=== PATIENT | female | born 1995 | race African-American/Black ===

== ENCOUNTER 2017-04-06 16:53 | Emergency (ER) | payer MEDICAID ==
[2017-04-06] MEDS ORDERED: IBUPROFEN 600 MG TABLET PO ONE (17:29)
--- NOTE | 2017-04-06 17:56 | ER Document Report ---
ED Cardiac - General Chief Complaint: Chest Pain Stated Complaint: SHORTNESS OF BREATH Time Seen by Provider: 04/06/17 17:26 Notes: The patient is a 21-year-old female, past medical history childhood asthma, presents with right-sided chest pain is described as an achiness with mild shortness of breath. It started after she was cleaning today and the pain is worse when she moves her arms. She denies OCP use, hemoptysis, fevers, leg swelling, recent surgery, rash, headaches, nausea, vomiting or abdominal pain. TRAVEL OUTSIDE OF THE [place] IN LAST 30 DAYS: No - Related Data Allergies/Adverse Reactions: Penicillins Allergy (Verified 04/06/17 17:15) Past Medical History - General Information source: Patient - Social History Smoking Status: Current Some Day Smoker Chew tobacco use (# tins/day): No Frequency of alcohol use: None Drug Abuse: None Family History: Malignancy Pulmonary Medical History: Reports: Hx Asthma - childhood Renal/ Medical History: Denies: Hx Peritoneal Dialysis - Immunizations Hx Diphtheria, Pertussis, Tetanus Vaccination: Yes Review of Systems - Review of Systems Notes: REVIEW OF SYSTEMS: CONSTITUTIONAL: -fevers, -chills EENT: -eye pain, -difficulty swallowing, -nasal congestion CARDIOVASCULAR: +chest pain, -syncope. RESPIRATORY: -cough, +SOB GASTROINTESTINAL: -abdominal pain, - nausea, -vomiting, -diarrhea GENITOURINARY: -dysuria, -hematuria MUSCULOSKELETAL: -back pain, -neck pain SKIN: -rash or skin lesions. HEMATOLOGIC: -easy bruising or bleeding. LYMPHATIC: -swollen, enlarged glands. NEUROLOGICAL: -altered mental status or loss of consciousness, -headache, - neurologic symptoms PSYCHIATRIC: -anxiety, -depression. ALL OTHER SYSTEMS REVIEWED AND NEGATIVE. Physical Exam - Vital signs Vitals: Temp Pulse Resp BP Pulse Ox 98.6 F 64 12 126/74 H 100 04/06/17 16:56 04/06/17 16:56 04/06/17 16:56 04/06/17 16:56 04/06/17 16:56 - Notes Notes: PHYSICAL EXAMINATION: GENERAL: Well-appearing, well-nourished and in no acute distress. HEAD: Atraumatic, normocephalic. EYES: Pupils equal round and reactive to light, extraocular movements intact, sclera anicteric, conjunctiva are normal. ENT: nares patent, oropharynx clear without exudates. Moist mucous membranes. NECK: Normal range of motion, supple without lymphadenopathy LUNGS: Breath sounds clear to auscultation bilaterally and equal. No wheezes rales or rhonchi. HEART: Regular rate and rhythm without murmurs. Right upper chest wall tenderness. ABDOMEN: Soft, nontender, normoactive bowel sounds. No guarding, no rebound. No masses appreciated. EXTREMITIES: Normal range of motion, no pitting or edema. No cyanosis. NEUROLOGICAL: Cranial nerves grossly intact. Normal speech, normal gait. Normal sensory and motor exams. PSYCH: Normal mood, normal affect. SKIN: Warm, Dry, normal turgor, no rashes or lesions noted. Course - Re-evaluation Re-evalutation: Patient has reproducible right upper chest wall pain. EKG does not show any ischemic changes and chest x-ray is unremarkable. She is PERC negative and her HEART score is 0. Will discharge patient home with NSAIDs and f/u with her PMD for further evaluation. - Vital Signs Vital signs: Temp Pulse Resp BP Pulse Ox 98.6 F 64 12 126/74 H 100 04/06/17 16:56 04/06/17 16:56 04/06/17 16:56 04/06/17 16:56 04/06/17 16:56 - Diagnostic Test Radiology reviewed: Image reviewed, Reports reviewed Radiology results interpreted by me: CXR: NAD - EKG Interpretation by Me EKG shows normal: Sinus rhythm, [place], Intervals, QRS Complexes Additional EKG results interpreted by me: No STEMI Discharge - Discharge Clinical Impression: Chest pain Qualifiers: Chest pain type: unspecified Qualified Code(s): R07.9 - Chest pain, unspecified Condition: Stable Disposition: HOME, SELF-CARE Additional Instructions: CHEST PAIN OF UNCLEAR CAUSE: The exact cause of your chest pain isn't clear. Fortunately, there is no evidence of a dangerous medical condition. Further testing may be required to find the source of the pain. Most often, we find that this pain is coming from the chest wall -- the muscles or rib joints in the chest. But chest pain can come from the lung and lung lining, the esophagus, the heart valves or heart lining, and even the stomach or gallbladder. Rest. Eat lightly until the pain is gone. We may prescribe medicine for pain and inflammation. You should call the physician immediately if the pain radiates to the shoulder, jaw or arms; if you start to run a fever or develop a cough; or if you develop shortness of breath, or other new or alarming symptoms. NORMAL EXAM AND WORKUP: At this time, your examination and workup show no significant abnormality. No significant abnormal physical findings were noted. All laboratory, EKG, and imaging (x-ray, CT scans, ultrasound) studies that were ordered show no significant abnormality. Although your examination and all studies that were ordered showed no significant abnormal finding, there are no examinations and no studies that are 100% accurate. There is always the possibility that some abnormality could exist and not be detected with physical examination or within the limits and capabilities of laboratory and other studies. You should return or follow up as you were instructed on your visit today for further evaluation if your symptoms do not resolve. CHEST WALL PAIN: Your chest pain may be coming from the chest wall. This is often caused by straining the muscles or joints in the chest during physical activity, direct trauma, coughing, or vigorous vomiting. Persons with arthritis are especially prone to this type of pain, due to inflammation of the cartilage joints near the breast bone. Occasionally, no cause can be found. Rest from strenuous physical activity. This kind of chest pain is usually made worse by movement of the chest. Depending on the symptoms, we may prescribe medicine for pain, muscle relaxation, and antiinflammatory effects. If the pain is new, and seems to be due to muscle strain, cold packs can help. Otherwise, apply gentle warmth to the painful area for 15 minutes every hour or two. You should call contact the doctor immediately if things change. Further evaluation is needed if you develop a fever or cough, if the nature of the pain changes, or if you become short of breath. FOLLOW-UP CARE: If you have been referred to a physician for follow-up care, call the physician s office for an appointment as you were instructed or within the next two days. If you experience worsening or a significant change in your symptoms, notify the physician immediately or return to the Emergency Department at any time for re-evaluation.
--- NOTE | 2017-04-06 18:11 | RADIOLOGY REPORT (SQ) ---
EXAM DESCRIPTION: CHEST PA/LAT COMPLETED DATE/TIME: 04/06/2017 5:50 pm REASON FOR STUDY: near syncope COMPARISON: None. EXAM PARAMETERS: NUMBER OF VIEWS: two views TECHNIQUE: Digital Frontal and Lateral radiographic views of the chest acquired. RADIATION DOSE: NA LIMITATIONS: none FINDINGS: LUNGS AND PLEURA: No opacities, masses or pneumothorax. No pleural effusion. MEDIASTINUM AND HILAR STRUCTURES: No masses or contour abnormalities. HEART AND VASCULAR STRUCTURES: Heart normal size. No evidence for failure. BONES: No acute findings. HARDWARE: None in the chest. OTHER: No other significant finding. IMPRESSION: NO SIGNIFICANT RADIOGRAPHIC FINDING IN THE CHEST. TECHNICAL DOCUMENTATION: JOB ID: [id number] [employer]- All Rights Reserved
--- NOTE | 2017-04-06 18:26 | EKG REPORT ---
SEVERITY:- BORDERLINE ECG - SINUS RHYTHM BORDERLINE T ABNORMALITIES, ANTERIOR LEADS : Confirmed by: Juan Cook MD 06-Apr-2017 18:26:09
[2017-04-06 18:52] VITALS: BP 127/82
== END 2017-04-06 18:26 | disposition home or self-care (01) ==
LOC: ER 16:53
DX: R07.89 Other chest pain (principal); R06.02 Shortness of breath; F17.200 Nicotine dependence, unspecified, uncomplicated; Z87.09 Personal history of other diseases of the respiratory system; Z88.0 Allergy status to penicillin
CPT/HCPCS: 93005; 99285; 81025; 71020; 93010; J3490

== ENCOUNTER 2017-04-08 11:53 | Emergency (ER) | payer MEDICAID ==
[2017-04-08] MEDS ORDERED: MAG HYDROX/AL HYDROX/SIMETH SUSP 30 ML UDCUP PO ONE (12:16)
[2017-04-08] MEDS ORDERED: METOCLOPRAMIDE HCL ORAL SOLN 10 MG/10 ML UDCUP PO ONE (12:16)
[2017-04-08] MEDS ORDERED: LIDOCAINE 2% VISCOUS SOLN 20 ML UDCUP PO ONE (12:16)
[2017-04-08 12:44] LABS: ABSOLUTE BASOPHILS # (AUTO) 0.1 10^3/uL (0.0-0.2); ABSOLUTE EOSINOPHILS # (AUTO) 0.1 10^3/uL (0.0-0.6); ABSOLUTE LYMPHOCYTES (AUTO) 2.8 10^3/uL (0.5-4.7); ABSOLUTE MONOCYTES (AUTO) 0.5 10^3/uL (0.1-1.4); ABSOLUTE NEUT (AUTO) 5.8 10^3/uL (1.7-8.2); BASOPHILS % (AUTO) 0.6 % (0-2); EOSINOPHILS % (AUTO) 1.2 % (0-6); HEMOGLOBIN 12.8 g/dL (12.0-15.5); HGB HCT DIFFERENCE -0.6; LYMPHOCYTES % (AUTO) 30.6 % (13-45); MEAN CORPUSCULAR HEMOGLOBIN 28.8 pg (27.0-33.4); MEAN CORPUSCULAR HGB CONC 32.9 g/dL (32.0-36.0); MEAN CORPUSCULAR VOLUME 88 fl (80-97); MONOCYTES % (AUTO) 5.2 % (3-13); RED BLOOD COUNT 4.44 10^6/uL (3.72-5.28); RED CELL DISTRIBUTION WIDTH 13.4 % (11.5-14.0); SEGMENTED NEUTROPHILS % (AUTO) 62.4 % (42-78); WHITE BLOOD COUNT 9.2 10^3/uL (4.0-10.5)
[2017-04-08 12:46] LABS: APPEARANCE,URINE CLEAR; BILIRUBIN,URINE NEGATIVE (NEGATIVE); GLUCOSE, URINE NEGATIVE (NEGATIVE); KETONES,URINE NEGATIVE (NEGATIVE); LEUKOCYTE ESTERASE,URINE NEGATIVE (NEGATIVE); NITRITE,URINE NEGATIVE (NEGATIVE); PROTEIN,URINE NEGATIVE (NEGATIVE); URINE SPECIFIC GRAVITY 1.005; UROBILINOGEN,URINE NEGATIVE mg/dL (<2.0)
[2017-04-08 13:06] LABS: ALANINE AMINOTRANSFERASE 20 U/L (9-52); ALBUMIN 3.9 g/dL (3.5-5.0); ALKALINE PHOSPHATASE 67 U/L (38-126); ANION GAP 10 (5-19); ASPARTATE AMINO TRANSFERASE 14 U/L (14-36); BILIRUBIN,DIRECT 0.3 mg/dL (0.0-0.4); BILIRUBIN,TOTAL 0.4 mg/dL (0.2-1.3); BLOOD UREA NITROGEN 9 mg/dL (7-20); CALCIUM 9.5 mg/dL (8.4-10.2); CARBON DIOXIDE 25 mmol/L (22-30); CHLORIDE 107 mmol/L (98-107); CREATININE RESULT 0.63 mg/dL (0.52-1.25); GLUCOSE 87 mg/dL (75-110); POTASSIUM 4.3 mmol/L (3.6-5.0); SODIUM 142.1 mmol/L (137-145); TOTAL PROTEIN 6.6 g/dL (6.3-8.2)
--- NOTE | 2017-04-08 14:15 | ER Document Report ---
ED Cardiac - General Chief Complaint: Chest Pain Stated Complaint: CHEST PAIN Time Seen by Provider: 04/08/17 12:15 Mode of Arrival: Ambulatory Information source: Patient Notes: Patient comes in with right-sided chest pain. She states it is sharp and moderate. It does radiate to her back. She has not noticed any that makes it better or worse. She was seen here 2 days ago with a negative workup. She has no chronic medical conditions or surgeries. Patient denies any vomiting or diarrhea but does have some nausea. Patient denies any previous history of DVTs. She does not smoke or use control pills. She states she has been under a lot of stress lately and feeling very anxious. TRAVEL OUTSIDE OF THE [place] IN LAST 30 DAYS: No - Related Data Allergies/Adverse Reactions: Penicillins Allergy (Verified 04/08/17 12:43) Past Medical History - General Information source: Patient - Social History Smoking Status: Never Smoker Frequency of alcohol use: None Drug Abuse: None Family History: Reviewed & Not Pertinent, Malignancy Patient has suicidal ideation: No Patient has homicidal ideation: No Pulmonary Medical History: Reports: Hx Asthma - childhood Renal/ Medical History: Denies: Hx Peritoneal Dialysis Surgical Hx: Negative - Immunizations Hx Diphtheria, Pertussis, Tetanus Vaccination: Yes Review of Systems - Review of Systems Constitutional: denies: Chills, Fever Cardiovascular: Chest pain. denies: Palpitations Respiratory: Short of breath. denies: Cough Genitourinary: denies: Dysuria, Frequency -: Yes All other systems reviewed and negative Physical Exam - Vital signs Vitals: Temp Pulse Resp BP Pulse Ox 98.7 F 56 L 16 116/79 100 04/08/17 12:09 04/08/17 12:09 04/08/17 12:09 04/08/17 12:09 04/08/17 12:09 Interpretation: Normal - General General appearance: Appears well, Alert - HEENT Head: Normocephalic, Atraumatic Eyes: Normal Pupils: PERRL - Respiratory Respiratory status: No respiratory distress Chest status: Nontender Breath sounds: Normal Chest palpation: Normal - Cardiovascular Rhythm: Regular Heart sounds: Normal auscultation Murmur: No - Abdominal Inspection: Normal Distension: No distension Bowel sounds: Normal Tenderness: Nontender Organomegaly: No organomegaly - Back Back: Normal, Nontender - Extremities General upper extremity: Normal inspection, Nontender, Normal color, Normal ROM , Normal temperature General lower extremity: Normal inspection, Nontender, Normal color, Normal ROM , Normal temperature, Normal weight bearing. No: Dulce's sign - Neurological Neuro grossly intact: Yes Cognition: Normal Orientation: AAOx4 [place]anna Coma Scale Eye Opening: Spontaneous [place] Coma Scale Verbal: Oriented [place] Coma Scale Motor: Obeys Commands [place] Coma Scale Total: 15 Speech: Normal Motor strength normal: LUE, RUE, LLE, RLE Sensory: Normal - Psychological Associated symptoms: Normal affect, Normal mood - Skin Skin Temperature: Warm Skin Moisture: Dry Skin Color: Normal Course - Vital Signs Vital signs: Temp Pulse Resp BP Pulse Ox 98.7 F 56 L 16 116/79 100 04/08/17 12:04/08/17 12:04/08/17 12:09 04/08/17 12:09 04/08/17 12:09 - Laboratory Result Diagrams: 04/08/17 12:34 04/08/17 12:34 - EKG Interpretation by Ct EKG shows normal: Sinus rhythm Rate: Normal Rhythm: NSR Hawks/QRS: No: Right axis deviation, Left axis deviation When compared to previous EKG there are: No significant change Discharge - Discharge Clinical Impression: Acute anxiety Condition: Stable Disposition: HOME, SELF-CARE Instructions: Anxiety ([facility]) Additional Instructions: Please follow-up as an outpatient for problems with stress and anxiety as instructed. He has been described a medicine called Xanax, it is a benzodiazepine, it will help with anxiety. Prescriptions: Alprazolam [Xanax 0.25 mg Tablet] 0.25 mg PO TID PRN #10 tab PRN Reason: Forms: Elevated Blood Pressure
[2017-04-08 14:21] VITALS: BP 116/87
--- NOTE | 2017-04-08 19:52 | EKG REPORT ---
SEVERITY:- BORDERLINE ECG - SINUS ARRHYTHMIA, RATE 48-[address]-T CHANGES- INFERIOR LEADS : Confirmed by: Juan Cook MD 08-Apr-2017 19:52:11
== END 2017-04-08 14:18 | disposition home or self-care (01) ==
LOC: ER 11:53
DX: F41.9 Anxiety disorder, unspecified (principal); R07.9 Chest pain, unspecified; M54.9 Dorsalgia, unspecified
CPT/HCPCS: 93005; 99285; 36415; 85025; 81025; 80053; 81001; 84484; 93010; J3490 ×3

== ENCOUNTER 2017-10-20 22:11 | Emergency (ER) | payer MEDICAID, OTHER ==
[2017-10-20] MEDS ORDERED: KETOROLAC TROMETHAMINE INJ/PF 30 MG/1 ML SDV IM ONE (23:15)
--- NOTE | 2017-10-20 23:18 | ER Document Report ---
ED Cardiac - General Chief Complaint: Chest Pain Stated Complaint: CHEST PAIN Time Seen by Provider: 10/20/17 22:57 Mode of Arrival: Ambulatory Information source: Patient TRAVEL OUTSIDE OF THE [place] IN LAST 30 DAYS: No - HPI Patient complains to provider of: Chest pain Notes: Patient is here with complaints of chest pain. She states the pain is in the right side of her chest. It started this morning. It has been constant and progressively getting worse. Pain is worse with movement of her right arm, taking a deep breath, as well as palpating the right chest. She denies any trauma or injury. She denies any fever or cough. She denies any history of high blood pressure, high cholesterol, diabetes, CAD. She denies IV drug use. She is a smoker. She denies any recent long trips or surgeries, leg pain or leg swelling, cancer, control pills, history of DVT or PE. She has no chronic medical conditions. She took a baby aspirin and Tylenol without relief. She denies any other complaints at this time. - Related Data Allergies/Adverse Reactions: Penicillins Allergy (Verified 04/08/17 12:43) Past Medical History - Social History Smoking Status: Current Every Day Smoker Chew tobacco use (# tins/day): No Frequency of alcohol use: Occasional Drug Abuse: None Family History: Reviewed & Not Pertinent, Malignancy Patient has suicidal ideation: No Patient has homicidal ideation: No Pulmonary Medical History: Reports: Hx Asthma - childhood Renal/ Medical History: Denies: Hx Peritoneal Dialysis - Immunizations Hx Diphtheria, Pertussis, Tetanus Vaccination: Yes Review of Systems - Review of Systems -: Yes All other systems reviewed and negative Physical Exam - Notes Notes: GENERAL: alert, cooperative, nontoxic, no distress. HEAD: normocephalic, atraumatic EYES: conjunctiva pink without discharge, no external redness or swelling. EARS: no external swelling, no external redness NOSE: atraumatic, no external swelling MOUTH/THROAT: mucous membranes moist and pink, posterior pharynx without erythema, swelling, exudate. No trismus or drooling. NECK: soft, supple, full range of motion, no meningismus. CHEST: no distress, lungs clear and equal throughout. No wheezing, rales, rhonchi. Tenderness to palpation of the right upper anterior chest. CARDIAC: regular rate and rhythm, no murmur, normal capillary refill, normal pulses. No peripheral edema noted. ABDOMEN: Soft, nontender. BACK: full range of motion, no CVA tenderness. EXTREMITIES: full range of motion of all extremities. No redness, no swelling. NEURO: alert and oriented x 3, no focal deficits, full range of motion of all extremities. PYSCH: appropriate mood, affect. Patient is cooperative. SKIN: pink, warm, dry, no rash. Course - Re-evaluation Re-evalutation: 10/20/17 23:53 The patient is nontoxic appearing with stable vitals. The patient has right- sided chest pain is been present since this morning. It is worse with movement , deep breath, palpation of this area. She denies trauma. Her EKG is unremarkable. Chest x-ray shows no acute abnormality. She has had similar pain to this in the past and had a full workup last year for the same pain. She has no ACS risk factors. This is very atypical for ACS. She has no PE risk factors and is PERC rule negative for PE, therefore no further provocative testing is needed. Patient's pain is completely reproducible most likely chest wall in nature. She was given a shot of Toradol in the emergency department. She will be discharged home with a prescription for Voltaren. Follow-up if not better in the next 3-5 days, sooner for worsening symptoms, difficulty breathing , high fever, or for any further concerns. The patient's emergency department workup and current diagnosis were explained to the patient and or family. Follow-up instructions were provided. Medications if prescribed were discussed. Instructions for when to return to the emergency department including specific worrisome symptoms were discussed with the patient and/or family. - Diagnostic Test Radiology reviewed: Image reviewed, Reports reviewed - Negative chest x-ray per the radiologist - EKG Interpretation by Id EKG shows normal: Sinus rhythm, [place], Intervals, QRS Complexes, ST-T Waves Rate: Normal Additional EKG results interpreted by me: 10/20/17 23:17 Inverted T-wave in lead III Discharge - Discharge Clinical Impression: Right-sided chest wall pain Condition: Stable Disposition: HOME, SELF-CARE Instructions: Anti-Inflammatory Medication ([facility]), Chest Wall Pain ([facility]) Additional Instructions: Take medication as prescribed. Follow-up with your doctor if not better in 3-5 days, sooner for worsening pain, high fever, difficulty breathing, passing out, or for any further concerns. Prescriptions: Diclofenac Sodium [Voltaren 50 Mg Tablet.] 50 mg PO BID #20 tablet.dr Forms: Smoking Cessation Education Referrals: [facility] [Provider Group] - Follow up as needed
--- NOTE | 2017-10-20 23:25 | RADIOLOGY REPORT (SQ) ---
EXAM DESCRIPTION: CHEST PA/LAT COMPLETED DATE/TIME: 10/20/2017 10:55 pm REASON FOR STUDY: cp COMPARISON: 04/06/2017 EXAM PARAMETERS: NUMBER OF VIEWS: two views TECHNIQUE: Digital Frontal and Lateral radiographic views of the chest acquired. RADIATION DOSE: NA LIMITATIONS: none FINDINGS: LUNGS AND PLEURA: No opacities, masses or pneumothorax. No pleural effusion. MEDIASTINUM AND HILAR STRUCTURES: No masses or contour abnormalities. HEART AND VASCULAR STRUCTURES: Heart normal size. No evidence for failure. BONES: No acute findings. HARDWARE: None in the chest. OTHER: No other significant finding. IMPRESSION: NO SIGNIFICANT RADIOGRAPHIC FINDING IN THE CHEST. TECHNICAL DOCUMENTATION: JOB ID: [id number] 2010 [employer]- All Rights Reserved Reading location - IP/workstation name: [email or web address]
--- NOTE | 2017-10-21 23:03 | EKG REPORT ---
SEVERITY:- OTHERWISE NORMAL ECG - SINUS ARRHYTHMIA, RATE [id number] : Confirmed by: Dio Still 21-Oct-2017 23:03:02
== END 2017-10-21 | disposition home or self-care (01) ==
LOC: ER 22:11
DX: R07.89 Other chest pain (principal); F17.200 Nicotine dependence, unspecified, uncomplicated; Z88.0 Allergy status to penicillin
CPT/HCPCS: 93005; 99285; 96372; 71046; 93010; J1885

== ENCOUNTER 2018-05-09 14:11 | Emergency (ER) | payer SELFPAY ==
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
[2018-05-09 15:49] LABS: APPEARANCE,URINE CLEAR; BILIRUBIN,URINE NEGATIVE (NEGATIVE); COLOR,URINE YELLOW; GLUCOSE, URINE NEGATIVE (NEGATIVE); KETONES,URINE NEGATIVE (NEGATIVE); LEUKOCYTE ESTERASE,URINE NEGATIVE (NEGATIVE); NITRITE,URINE NEGATIVE (NEGATIVE); PROTEIN,URINE 30 mg/dL (NEGATIVE); URINE SPECIFIC GRAVITY 1.027
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
[2018-05-09] MEDS ORDERED: ACETAMINOPHEN 325 MG TABLET PO ONE (16:06)
[2018-05-09 16:29] VITALS: BP 92/58
== END 2018-05-09 16:32 | disposition home or self-care (01) ==
LOC: ER 14:11
DX: G89.29 Other chronic pain (principal); S09.90XA Unspecified injury of head, initial encounter; R07.81 Pleurodynia; M54.2 Cervicalgia; Y04.2XXA Assault by strike against or bumped into by another person, initial encounter; Y92.009 Unspecified place in unspecified non-institutional (private) residence as the place of occurrence of the external cause; Z88.0 Allergy status to penicillin
CPT/HCPCS: 36415; 70450; 70486; 71111; 72125; 81001; 81025; 99285

== ENCOUNTER → 2018-07-20 | Outpatient (CLI) | payer SELFPAY ==
--- NOTE | 2018-07-20 15:23 | RADIOLOGY REPORT (SQ) ---
EXAM DESCRIPTION: U/S [id number] TRNABD 1GES W/ODOP COMPLETED DATE/TIME: 07/20/2018 3:11 pm REASON FOR STUDY: Z34.81 ENCOUNTER FOR SUPRVSN OF NORMAL , FIRST TRIMESTER Z34.81 ENCOUNTE R FOR SUPRVSN OF NORMAL , FIRST TRIM COMPARISON: None. TECHNIQUE: Transabdominal static and realtime grayscale images acquired of the pelvis. Additional se lected spectral and color Doppler images recorded. All images stored on PACs. CG: Not available. CLINICAL DATES: [place]: 02/20/2019. EGA: 9 weeks 2 days LIMITATIONS: None. FINDINGS: FETUS: Single Living intrauterine . ULTRASOUND EGA: 9 weeks 1 day ULTRASOUND [place]: 02/21/2019 EFW: Not applicable less than 20 weeks. CRL: 2.39 cm FHR: 175 beats per minute. SURVEY: No visualized anomalies. AMNIOTIC FLUID: Adequate amount. PLACENTA: Not yet developed due to early gestation. SUBCHORIONIC BLEED: No SIZE OF BLEED: Not applicable. UTERUS: The uterus measures 10.1 x 7.4 x 5.9 cm. No masses. No anomalies. CERVICAL LENGTH: 2.6 cm Closed. RIGHT ADNEXA: Not visualized due to overlying bowel gas. LEFT ADNEXA: Not visualized due to overlying bowel gas. FREE FLUID: None. OTHER: Yolk sac visualized. IMPRESSION: LIVING INTRAUTERINE . EGA 9 weeks 1 day Trimester of : First - 0 to 13 weeks. TECHNICAL DOCUMENTATION: JOB ID: [id number] [employer]- All Rights Reserved rev Reading location - IP/workstation name: [email or web address]
== END ==
LOC: RAD 16:04
PROVIDERS: ATTEND Nurse Practitioner
DX: Z34.81 Encounter for supervision of other normal pregnancy, first trimester (principal)
CPT/HCPCS: 76801

== ENCOUNTER 2019-02-23 09:21 | Inpatient (IN) | payer MEDICAID ==
[2019-02-23] MEDS ORDERED: RINGERS SOLUTION,LACTATED 1,000 ML IV PRN ×3 (09:40→17:38)
[2019-02-23] MEDS ORDERED: RINGERS SOLUTION,LACTATED 1,000 ML IV ONE (09:40)
[2019-02-23] MEDS ORDERED: CLINDAMYCIN 900 MG/D5W RTU 900 MG/50 ML RTUPB IV SCH (10:00)
[2019-02-23] MEDS ORDERED: VANCOMYCIN HCL INJ 1000 MG VIAL IV SCH (10:00)
[2019-02-23] MEDS ORDERED: OXYTOCIN 10 UNIT/ML VIAL ONE ×3 (10:07→16:45)
[2019-02-23] MEDS ORDERED: MISOPROSTOL 0.2 MG TABLET ONE (10:07)
[2019-02-23] MEDS ORDERED: OXYTOCIN/NORMAL SALINE 0 UNIT/0 ML RTUINJ ONE (10:07)
[2019-02-23] MEDS ORDERED: LIDOCAINE 1% INJ-PF (10 MG/ML) 30 ML SDV ONE (10:07)
[2019-02-23] MEDS ORDERED: HYDRALAZINE HCL INJ/PF 20 MG/1 ML SDV ONE (10:17)
[2019-02-23 10:30] LABS: UR PRO/CREAT RATIO RESULT 0.3 mg/mg (0.0-0.2); URINE CREATININE 245.5 mg/dL (16-327); URINE PROTEIN 72.3 mg/dL (<12)
[2019-02-23 10:39] LABS: ABSOLUTE BASOPHILS # (AUTO) 0.1 10^3/uL (0.0-0.2); ABSOLUTE EOSINOPHILS # (AUTO) 0.1 10^3/uL (0.0-0.6); ABSOLUTE LYMPHOCYTES (AUTO) 2.6 10^3/uL (0.5-4.7); ABSOLUTE MONOCYTES (AUTO) 0.8 10^3/uL (0.1-1.4); ABSOLUTE NEUT (AUTO) 6.4 10^3/uL (1.7-8.2); BASOPHILS % (AUTO) 0.9 % (0-2); HEMATOCRIT 35.5 % (36.0-47.0); LYMPHOCYTES % (AUTO) 26.4 % (13-45); MEAN CORPUSCULAR HEMOGLOBIN 28.9 pg (27.0-33.4); MEAN CORPUSCULAR HGB CONC 33.7 g/dL (32.0-36.0); MEAN CORPUSCULAR VOLUME 86 fl (80-97); MONOCYTES % (AUTO) 7.6 % (3-13); PLATELET COUNT 166 10^3/uL (150-450); RED BLOOD COUNT 4.13 10^6/uL (3.72-5.28); RED CELL DISTRIBUTION WIDTH 14.3 % (11.5-14.0); SEGMENTED NEUTROPHILS % (AUTO) 64.1 % (42-78); TOTAL CELLS COUNTED % (AUTO) 100 %
[2019-02-23] MEDS ORDERED: ACETAMINOPHEN 325 MG TABLET ONE (10:55)
[2019-02-23 10:57] LABS: ALANINE AMINOTRANSFERASE 14 U/L (9-52); ALBUMIN 2.8 g/dL (3.5-5.0); ALKALINE PHOSPHATASE 163 U/L (38-126); ANION GAP 6 (5-19); ASPARTATE AMINO TRANSFERASE 14 U/L (14-36); BILIRUBIN,DIRECT 0.3 mg/dL (0.0-0.4); BILIRUBIN,TOTAL 0.3 mg/dL (0.2-1.3); BLOOD UREA NITROGEN 9 mg/dL (7-20); CALCIUM 8.5 mg/dL (8.4-10.2); CARBON DIOXIDE 21 mmol/L (22-30); CHLORIDE 109 mmol/L (98-107); POTASSIUM 4.1 mmol/L (3.6-5.0); TOTAL PROTEIN 5.5 g/dL (6.3-8.2); URIC ACID 5.5 mg/dL (2.5-6.2)
[2019-02-23] MEDS ORDERED: OXYTOCIN/NORMAL SALINE 20 UNIT/1,000 ML RTUINJ IV PRN ×2 (10:58→13:39)
[2019-02-23] MEDS ORDERED: RINGERS SOLUTION,LACTATED 300 ML IV ONE (10:58)
[2019-02-23] MEDS ORDERED: VANCOMYCIN HCL 1,000 MG in DEXTROSE 5%-WATER 250 ML IV SCH (11:00)
[2019-02-23 11:05] LABS: GLUCOSE 67 mg/dL (75-110)
--- NOTE | 2019-02-23 11:12 | Admission Physical ---
Datetime Report Generated by CPN: 02/23/2019 11:12 CURRENT ADMISSION Chief Complaint Other: elevated BP in the office today, +headache Indication for Induction- Other: Pre-eclampsia Admit Impression : Term, Intrauterine ; No Active Labor Admit Plan: Initiate Labor Induction Protocol ALLERGIES Medication Allergies: Yes Medication Allergies: Penicillins (04/08/2017) Latex: No Latex Allergies OBSTETRICAL HISTORY EDC: 02/22/2019 00:00 : 2 Para: 0 Term: 0 : 0 SAB: 1 IAB: 0 Ectopic: 0 Livin Cesareans: 0 VBACs: 0 Multiple Births: 0 Gestational Diabetes: No Rh Sensitization: No Incompetent Cervix: No TESHA: No Infertility: No ART Treatment: No Uterine Anomaly: No IUGR: No Hx Previous C/S: No Macrosomia: No Hx Loss/Stillborn: No PIH: No Hx : No Placenta Previa/Abruption: No Depression/PP Depression: No PTL/PROM: No Post Hemorrhage: No SEE RECORDS Alcohol: No Marijuana : No Cocaine: No Other Illicit Drugs: No Cigarettes: Never Smoker. [id number] MEDICAL HISTORY Diabetes: No Blood Transfusion: No Pulmonary Disease (Asthma, TB): Yes Breast Disease: No Hypertension: No Returning Officer Surgery: No Heart Disease: No Hosp/Surgery: No Autoimmune Disorder: No Anesthetic Complications: No Kidney Disease: No Abnormal Pap Smear: No Neuro/Epilepsy: No Psychiatric Disorders: No Other Medical Diseases: No Hepatitis/Liver Disease: No Significant Family History: No Varicosities/Phlebitis: No Trauma/Violence : No Thyroid Dysfunction: No Medical History Comments: asthma INFECTIOUS HISTORY Gonorrhea: No Genital Herpes: No Chlamydia: No Tuberculosis: No Syphilis: No Hepatitis: No HIV/AIDS Exposure: No Rash or Viral Illness: No HPV: Yes Infectious History Comments: HPV 2017 PHYSICAL EXAM General: Normal HEENT: Normal Neurologic: Normal Thyroid: Normal Heart: Normal Lungs: Normal Breast: Normal Back: Normal Abdomen: Normal Genitourinary Exam: Normal Extremities: Normal DTRs: Normal Pelvic Type: Adequate Vital Signs: Reviewed VAGINAL EXAM Dilatation: 1 Effacement: 50 Station: -2 MEMBRANES Membranes: Intact FETUS A Monitoring: External US FHR- Baseline: 135 Variability: Moderate 6-25bpm Accelerations: 15X15 Decelerations: None FHR Category: Category I Admit Comment: at 40.1 wks sent from the office for GHTN work up. Pt c/o headache here on Labor and Delivery. VE 50/-2, vtx, It was decided to keep pt here today and start IOL. GBS + status. PLan Perez's catheter and low dose pitocin. Attending MD is Dr Cortez and agrees with plan of care PLANS FOR LABOR AND DELIVERY Labor and Delivery: None Pain Management: Epidural Feeding Preference: Both Circumcision: N/A INFORMED CONSENT Assignment: Florence Cortez MD Signature: with User ID: Sheree : with User ID: [email or web address]
[2019-02-23 13:03] LABS: APPEARANCE,URINE SLIGHTLY-CLOUDY; BILIRUBIN,URINE NEGATIVE (NEGATIVE); COLOR,URINE YELLOW; GLUCOSE, URINE NEGATIVE (NEGATIVE); KETONES,URINE NEGATIVE (NEGATIVE); LEUKOCYTE ESTERASE,URINE TRACE (NEGATIVE); NITRITE,URINE NEGATIVE (NEGATIVE); PROTEIN,URINE 100 mg/dL (NEGATIVE); URINE SPECIFIC GRAVITY 1.025; UROBILINOGEN,URINE NEGATIVE mg/dL (<2.0)
[2019-02-23 13:10] LABS: URINE AMPHETAMINES SCREEN NEGATIVE; URINE BARBITURATES SCREEN NEGATIVE; URINE BENZODIAZEPINES SCREEN NEGATIVE; URINE COCAINE SCREEN NEGATIVE; URINE MARIJUANA (THC) SCREEN NEGATIVE; URINE METHADONE SCREEN NEGATIVE; URINE PHENCYCLIDINE SCREEN NEGATIVE
[2019-02-23] MEDS ORDERED: EPHEDRINE SULFATE INJ 50 MG/1 ML AMPULE ONE (13:29)
[2019-02-23] MEDS ORDERED: FENTANYL/BUPIVACAINE/NS/PF 0 MCG/0 ML RTUINJ EPI ONE (13:29)
[2019-02-23] MEDS ORDERED: BUPIVACAINE HCL 0.25 % INJ/PF (2.5 MG/1 ML) 30 ML VIAL ONE (13:29)
[2019-02-23] MEDS ORDERED: PROMETHAZINE HCL INJ 25 MG/1 ML VIAL IV PRN (13:39)
[2019-02-23] MEDS ORDERED: OXYCODONE-ACETAMINOPHEN 5-325 MG TABLET PO PRN (13:39)
[2019-02-23] MEDS ORDERED: ACETAMINOPHEN 325 MG TABLET PO PRN (13:39)
[2019-02-23] MEDS ORDERED: DIPH/PERTUSS(ACELL)/TETANUS VAC/PF 0.5 ML SYR (>=10YO) IM PRN (13:39)
[2019-02-23] MEDS ORDERED: SIMETHICONE 80 MG TAB.CHEW PO PRN (13:39)
[2019-02-23] MEDS ORDERED: MEASLES,MUMPS&RUBELLA VACC/PF 0.5 ML VIAL SUBCUT PRN (13:39)
[2019-02-23] MEDS ORDERED: LIDOCAINE 2% INJ-PF (20 MG/ML) 10 ML AMPUL ONE ×2 (14:38→14:42)
[2019-02-23] MEDS ORDERED: LIDOCAINE 2% INJ-PF (20 MG/ML) 2 ML AMPUL ONE (14:39)
[2019-02-23] MEDS ORDERED: SUCCINYLCHOLINE CHLORIDE INJ 200 MG/10 ML VIAL ONE (15:02)
[2019-02-23] MEDS ORDERED: CLINDAMYCIN 900 MG/D5W RTU 900 MG/50 ML RTUPB IV ONE (15:29)
[2019-02-23] MEDS ORDERED: CITRIC ACID/SODIUM CITRATE ORAL SOLN 15 ML UDCUP ONE (15:29)
[2019-02-23] MEDS ORDERED: ONDANSETRON HCL INJ/PF 4 MG/2 ML SDV ONE (15:34)
[2019-02-23] MEDS ORDERED: PHENYLEPHRINE HCL INJ/PF 10 MG/1 ML SDV ONE (15:35)
[2019-02-23] MEDS ORDERED: CHLOROPROCAINE HCL INJ/PF 3% (30 MG/1 ML) 20 ML VIAL ONE (16:03)
[2019-02-23] MEDS ORDERED: MIDAZOLAM 2 MG/2 ML INJ ONE (16:17)
[2019-02-23] MEDS ORDERED: FENTANYL CITRATE INJ/PF 250 MCG/5 ML AMPULE ONE (16:17)
[2019-02-23] MEDS ORDERED: PROPOFOL INJ 200 MG/20 ML VIAL IV ONE (16:17)
[2019-02-23] MEDS ORDERED: MORPHINE SULFATE 10 MG/ML INJ ONE (16:45)
[2019-02-23] MEDS ORDERED: ACETAMINOPHEN 1,000 MG/100 ML RTUPB IV ONE (17:21)
[2019-02-23] MEDS ORDERED: ACETAMINOPHEN 1,000 MG/100 ML RTUPB IV PRN (17:38)
[2019-02-23] MEDS ORDERED: KETOROLAC TROMETHAMINE INJ/PF 30 MG/1 ML SDV ONE (17:50)
[2019-02-23] MEDS: KETOROLAC TROMETHAMINE INJ/PF 30 MG/1 ML SDV IV SCH (17:52)
[2019-02-23] MEDS ORDERED: FENTANYL CITRATE INJ/PF 100 MCG/2 ML AMPUL ONE (18:06)
--- NOTE | 2019-02-23 18:08 | Brief Operative Note ---
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 female infant born at 1614, cephalic presentation, nuchal cord, Apgars 8/9, weight 8#4oz. IVF 1500ml, UOP 150ml COMPLICATIONS: Epidural did not provide anesthesia and therefore patient underwent general anesthesia ESTIMATED BLOOD LOSS: 1150ml TISSUE REMOVED OR ALTERED: placenta and cord not sent to pathology TECHNICAL PROCEDURE: Primary Section
--- NOTE | 2019-02-23 18:49 | Delivery Summary ---
Del Sum A-C Datetime Report Generated by CPN: 02/23/2019 18:48 DELIVERY PERSONNEL DELIVERY PERSONNEL: [id number] Delivery Doctor:: Florence Cortez MD Anesthesiologist:: Blue Beltran MD FOLDER MACHINE OPERATOR:: Alan Sparks CRNA Labor and Delivery Nurse:: Katya Thomas RNclicker operator Nurse:: Shannon Perez RN Hemp Fiber Taker Off:: MD Maeve Nursery Nurse:: Christen Helms RN Union Laborer/LICENSED PRACTICAL NURSE INSTRUCTOR: Raquel Davis CST Union Laborer/LICENSED PRACTICAL NURSE INSTRUCTOR: Kajal Burgess CST Additional Personnel: : Caitlyn Durant, ST MATERNAL INFORMATION Delivery Anesthesia: General Medications After Delivery: Pitocin Drip 20 Units/1000ml NSS Maternal Complications: None LABOR SUMMARY EDC: 02/22/2019 00:00 No. Babies in Womb: 1 Attempted: No LABOR INFORMATION Reason for Induction: Pre-Eclampsia Group B Beta Strep: positive Antibiotics # of Doses: 1 Antibiotics Time of Last Dose: 1051 Name of Antibiotic Given: vancomyocin Steroids Given: None Reason Steroids Not Administered: Not Applicable STAGES OF LABOR Stage 3 hr: 0 Stage 3 min: 1 VAGINAL DELIVERY Episiotomy: None Laceration #1: None Sponge Count Correct: N/A Sharps Count Correct: N/A CSECTION DELIVERY Primary Indication: Other Other Primary Indication: suspected HSV CSection Urgency: Non-Scheduled CSection Incidence: Primary Labor: No Labor Elective: Nonelective CSection Incision: Lower Uterine Transverse BABY A INFORMATION Delivery Date/Time: 02/23/2019 16:14 Method of Delivery: Born in Route : No : N/A Forceps: N/A Vacuum Extraction: N/A Shoulder Dystocia : No PRESENTATION/POSITION BABY A Presentation: Cephalic Cephalic Presentation: Vertex Breech Presentation: N/A PLACENTA INFORMATION BABY A Placenta Delivery Time : 02/23/2019 16:15 Placenta Method of Delivery: Manual Removal Placenta Status: Delivered SCORES BABY A Heart Rate 1 min: >100 bpm Resp Effort 1 min: Good Cry Reflex Irritability 1 min: Cough or Sneeze or Pulls Away Muscle Tone 1 min: Active Motion Color 1 min: Blue/Pale SCORE 1 MIN: 8 Heart Rate 5 min: >100 bpm Resp Effort 5 min: Good Cry Reflex Irritability 5 min: Cough or Sneeze or Pulls Away Muscle Tone 5 min: Active Motion Color 5 min: Body Fairdealing, Extremities Blue SCORE 5 MIN: 9 INFANT INFORMATION BABY A Gestational Age at Delivery: 40.1 Gestational Status: Full Term- 39- 40.6 Weeks Infant Outcome : Liveborn Condition : Stable Sex: Female IDENTIFICATION BABY A Verification Date/Time: 02/23/2019 16:34 ID Band Number: [id number] Mother's Name Verified: Yes Infant RN Verifying : RehanEloy Richter RN RN WEIGHT/LENGTH BABY A Birthweight (gm): 3730 Weight (lb): 8 Infant Weight (oz): 4 Length (in): 20.00 Infant Length (cm): 50.80 CORD INFORMATION BABY A No. Cord Vessels: 3 Nuchal Cord : N/A Cord Blood Taken: Yes-For Eval (Mom's Blood Type - or O+) Suction: Mouth; Nose BABY B INFORMATION : N/A
[2019-02-23] MEDS ORDERED: HYDROMORPHONE HCL INJ/PF 2 MG/ML AMPULE ONE (18:53)
--- NOTE | 2019-02-23 19:16 | Operative Report ---
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 female born at 1614, cephalic presentation, nuchal cord, Apgars 8/9, weight 8#4oz. IVF 1500ml, UOP 150ml PROCEDURE: Anesthesia provider: [Devin MCCLAIN, Alan Sparks CRNA] Urine output: [150ml] IV fluids: [1500ml] Indications: [23yo at 40+1ega presents for evaluation of severe range BPs in the office with a AZEVEDO for 3 days. Severe range BPs requiring hydralazine upon arrival. Labs with elevated P:C ratio and consistent with PreE. Reviewed need for delivery due to PreE with severe range BPs. Review of chart revealed noted GBS positive urine with no susceptibilities and PCN allergy therefore van comycin was ordered. Additional review of chart with possible HSV lesion on 02/07/2019 and HSV culture was done (but no IgG or IgM and no antivirals given in interim). Reviewed is lesion was HSV but culture was false negative due to inadequate sampling or partially healing lesion at the time that she may have viral shedding and baby would be at risk for having HSV and would recommend Primary Section. Reviewed also that if culture and IgG/IgM are negative that she could have a vaginal delivery and would not be needed. However it would be several days before IgM/IgG were back and she needed to be delivered. Reviewed risk of section minimal compared to HSV even if culture was a true negative. Dr. Cruz came in and spoke with patient regarding the risk of HSV with recent untreated possible HSV outbreak. The patient and the family desired to proceed with Primary Section to prevent risk of HSV. The risks, benefits, alternatives were reviewed with patient and family extensively. ] Procedure: The patient was taken to the operating room after epidural placed in DR#3 and was then prepped and draped in the normal sterile fashion and placed in the dorsal supine position with a leftward tilt. Upon testing of epidural the patient was still feeling pain and then epidural was dosed and upon retesting noted that she was still in pain. Decision was made to undergo general anesthesia which was obtained at 1612. A Pfannenstiel skin incision was then made and carried through to the underlying layers of the fascia with the scalpel. The fascia was incised in the midline and the incision extended laterally with the Michael scissors. The superior aspect of the fascial incision was then grasped with Lucy clamps elevated and the underlying rectus muscles dissected off [bluntly]. Attention was then turned to the inferior aspect of the fascial incision which in a similar fashion was grasped, tented up with Lucy clamps, and the rectus muscles dissected off [bluntly]. The rectus muscles were then in the midline and the peritoneum at the amount identified and entered [bluntly]. The peritoneal incision was then extended superiorly and inferiorly with good visualization of the bladder. The bladder blade was inserted and the lower uterine segment incised in a transverse fashion with the scalpel. The uterine incision was then extended bluntly. The bladder blade was removed and the infant's head was delivered from cephalic presentation atraumatically. The nose and mouth were suctioned and the cord doubly clamped and cut. And the infant was handed off to waiting pediatricians. The placenta was then delivered spontaneously and the uterus exteriorized and cleared of all clots and debris. The uterine incision was then repaired with 1- 0 Vicryl in a running locked fashion. A second layer of the same suture was used to obtain hemostasis via imbrication of the initial layer. The bladder flap was then repaired with 3-0 chromic in a running fashion. The uterus was returned to the patient's abdomen. The gutters were cleared of all clots and debris. All operative sites were noted to be hemostatic. The fascia was reapproximated with 0 Vicryl in a running fashion from each lateral edge to the midline. The skin was closed with 3-0 Monocryl in a running subcuticular fashi on with overlying Dermabond for additional dressing as well as wound closure. The patient tolerated the procedure well. Sponge lap needle and instrument counts are correct times 2. 1 gram of vancomycin had been given earlier in the day due to GBS positive and unknown susceptibilities. Clindamycin 900mg was given prior to skin incision. The patient was taken to the recovery area awake and in stable condition.
[2019-02-23] MEDS ORDERED: KETOROLAC TROMETHAMINE INJ/PF 30 MG/1 ML SDV IV SCH (22:00)
[2019-02-23] MEDS: OXYCODONE-ACETAMINOPHEN 5-325 MG TABLET PO PRN (22:47)
[2019-02-24] MEDS: KETOROLAC TROMETHAMINE INJ/PF 30 MG/1 ML SDV IV SCH ×2 (02:25→09:31)
[2019-02-24] MEDS: OXYCODONE-ACETAMINOPHEN 5-325 MG TABLET PO PRN ×4 (02:51→21:50)
[2019-02-24 07:30] LABS: HEMATOCRIT 28.4 % (36.0-47.0); MEAN CORPUSCULAR HEMOGLOBIN 29.3 pg (27.0-33.4); MEAN CORPUSCULAR HGB CONC 33.7 g/dL (32.0-36.0); MEAN CORPUSCULAR VOLUME 87 fl (80-97); PLATELET COUNT 137 10^3/uL (150-450); RED BLOOD COUNT 3.27 10^6/uL (3.72-5.28); RED CELL DISTRIBUTION WIDTH 14.2 % (11.5-14.0); WHITE BLOOD COUNT 12.6 10^3/uL (4.0-10.5)
[2019-02-24 07:31] LABS: HEMOGLOBIN 9.6 g/dL (12.0-15.5)
--- NOTE | 2019-02-24 08:12 | PDOC PROGRESS REPORT ---
Subjective Progress Note for:: 02/24/19 Subjective:: part of titers obtained see revised op notes Reason For Visit: Physical Exam - Physical Exam Vital Signs: Temp Pulse Resp BP Pulse Ox 97.7 F 59 L 16 134/77 H 96 02/24/19 07:12 02/24/19 07:12 02/24/19 07:12 02/24/19 07:12 02/24/19 07:12 Intake & Output 02/23/19 02/24/19 02/25/19 06:59 06:59 06:59 Intake Total 300 Output Total 650 Balance -350 Weight 109.8 kg Result Laboratory Results: 02/24/19 06:42 02/23/19 10:25 02/23/19 02/23/19 02/23/19 09:35 10:25 10:25 WBC 10.0 RBC 4.13 Hgb 12.0 Hct 35.5 L MCV 86 MCH 28.9 MCHC 33.7 RDW 14.3 H Plt Count 166 Seg Neutrophils % 64.1 Lymphocytes % 26.4 Monocytes % 7.6 Eosinophils % 1.0 Basophils % 0.9 Absolute Neutrophils 6.4 Absolute Lymphocytes 2.6 Absolute Monocytes 0.8 Absolute Eosinophils 0.1 Absolute Basophils 0.1 Sodium 136.2 L Potassium 4.1 Chloride 109 H Carbon Dioxide 21 L Anion Gap 6 BUN 9 Creatinine 0.62 Est GFR ( Amer) > 60 Est GFR (Non-Af Amer) > 60 Glucose 67 L Uric Acid 5.5 Calcium 8.5 Total Bilirubin 0.3 AST 14 ALT 14 Alkaline Phosphatase 163 H Total Protein 5.5 L Albumin 2.8 L Urine Color YELLOW Urine Appearance SLIGHTLY-CLOUDY Urine pH 6.0 Ur Specific [place] 1.025 Urine Protein 100 H Urine Glucose (UA) NEGATIVE Urine Ketones NEGATIVE Urine Blood NEGATIVE Urine Nitrite NEGATIVE Ur Leukocyte Esterase TRACE H Urine WBC (Auto) 6 Urine RBC (Auto) 0 Blood Type Antibody Screen 02/23/19 02/24/19 10:25 06:42 WBC 12.6 H RBC 3.27 L Hgb 9.6 L D Hct 28.4 L MCV 87 MCH 29.3 MCHC 33.7 RDW 14.2 H Plt Count 137 L Seg Neutrophils % Lymphocytes % Monocytes % Eosinophils % Basophils % Absolute Neutrophils Absolute Lymphocytes Absolute Monocytes Absolute Eosinophils Absolute Basophils Sodium Potassium Chloride Carbon Dioxide Anion Gap BUN Creatinine Est GFR ( Amer) Est GFR (Non-Af Amer) Glucose Uric Acid Calcium Total Bilirubin AST ALT Alkaline Phosphatase Total Protein Albumin Urine Color Urine Appearance Urine pH Ur Specific [place] Urine Protein Urine Glucose (UA) Urine Ketones Urine Blood Urine Nitrite Ur Leukocyte Esterase Urine WBC (Auto) Urine RBC (Auto) Blood Type B NEGATIVE Antibody Screen NEGATIVE Assessment & Plan - Diagnosis (1) HSV-2 infection complicating Qualifiers: Trimester: third trimester Qualified Code(s): O98.513 - Other viral diseases complicating , third trimester; B00.9 - Herpesviral infection, unspecified Is this a current diagnosis for this admission?: Yes Plan: Upon discussion yesterday pt reported that she had never had HSV (genital). However, patient reported to the RN at a different time that she did have HSV genital in 2017 but never told anyone in the office. HSV IgG now returned as positive Will update patients chart in the office to state that she had HSV genital in the past. Patient informed that she needs HSV prophy at 35wks for all future pregnancies. - Time Time Spent with patient: Less than 15 minutes Medications reviewed and adjusted accordingly: Yes Anticipated discharge: Home Within: within 48 hours
[2019-02-24] MEDS: DOCUSATE SODIUM 100 MG CAPSULE PO SCH ×2 (09:31→17:34)
[2019-02-24] MEDS: PRENATAL VITAMIN W DHA CAPSULE PO SCH (09:31)
[2019-02-24] MEDS: VALACYCLOVIR HCL 500 MG TABLET PO SCH ×2 (09:31→21:51)
--- NOTE | 2019-02-24 09:38 | PDOC PROGRESS REPORT ---
Subjective-OB Progress Note for:: 02/24/19 Physical Exam (OB) Vital Signs: Temp Pulse Resp BP Pulse Ox 97.7 F 59 L 16 134/77 H 96 02/24/19 07:12 02/24/19 07:12 02/24/19 07:12 02/24/19 07:12 02/24/19 07:12 Intake & Output 02/23/19 02/24/19 02/25/19 06:59 06:59 06:59 Intake Total 300 Output Total 650 Balance -350 Weight 109.8 kg - Dressing Removed: No Incision: Dressing - Lochia Lochia Amount: Small 10-25 ml Lochia Color: Rubra/Red - Abdomen Description: Tender Hernia Present: No Bowel Sounds: Normoactive Flatus Presence: Absent Stool: No Fundal Description: Firm, Midline Fundal Height: u/3 - u/4 Objective-Diagnostic Laboratory: 02/24/19 06:42 02/23/19 10:25 02/23/19 02/23/19 02/23/19 09:35 10:25 10:25 WBC 10.0 RBC 4.13 Hgb 12.0 Hct 35.5 L MCV 86 MCH 28.9 MCHC 33.7 RDW 14.3 H Plt Count 166 Seg Neutrophils % 64.1 Lymphocytes % 26.4 Monocytes % 7.6 Eosinophils % 1.0 Basophils % 0.9 Absolute Neutrophils 6.4 Absolute Lymphocytes 2.6 Absolute Monocytes 0.8 Absolute Eosinophils 0.1 Absolute Basophils 0.1 Sodium 136.2 L Potassium 4.1 Chloride 109 H Carbon Dioxide 21 L Anion Gap 6 BUN 9 Creatinine 0.62 Est GFR ( Amer) > 60 Est GFR (Non-Af Amer) > 60 Glucose 67 L Uric Acid 5.5 Calcium 8.5 Total Bilirubin 0.3 AST 14 ALT 14 Alkaline Phosphatase 163 H Total Protein 5.5 L Albumin 2.8 L Urine Color YELLOW Urine Appearance SLIGHTLY-CLOUDY Urine pH 6.0 Ur Specific [place] 1.025 Urine Protein 100 H Urine Glucose (UA) NEGATIVE Urine Ketones NEGATIVE Urine Blood NEGATIVE Urine Nitrite NEGATIVE Ur Leukocyte Esterase TRACE H Urine WBC (Auto) 6 Urine RBC (Auto) 0 Blood Type Antibody Screen 02/23/19 02/24/19 02/24/19 10:25 06:42 06:42 WBC 12.6 H RBC 3.27 L Hgb 9.6 L D Hct 28.4 L MCV 87 MCH 29.3 MCHC 33.7 RDW 14.2 H Plt Count 137 L Seg Neutrophils % Lymphocytes % Monocytes % Eosinophils % Basophils % Absolute Neutrophils Absolute Lymphocytes Absolute Monocytes Absolute Eosinophils Absolute Basophils Sodium Potassium Chloride Carbon Dioxide Anion Gap BUN Creatinine Est GFR ( Amer) Est GFR (Non-Af Amer) Glucose Uric Acid Calcium Total Bilirubin AST ALT Alkaline Phosphatase Total Protein Albumin Urine Color Urine Appearance Urine pH Ur Specific [place] Urine Protein Urine Glucose (UA) Urine Ketones Urine Blood Urine Nitrite Ur Leukocyte Esterase Urine WBC (Auto) Urine RBC (Auto) Blood Type B NEGATIVE B NEGATIVE Antibody Screen NEGATIVE Assessment and Plan(PN) - Time Spent with Patient Medications reviewed and adjusted accordingly: Yes - Disposition Anticipated Discharge: Home
[2019-02-24] MEDS: IBUPROFEN 800 MG TABLET PO SCH ×2 (14:28→21:51)
[2019-02-24] MEDS ORDERED: IBUPROFEN 800 MG TABLET PO SCH ×2 (21:00)
[2019-02-25] MEDS: IBUPROFEN 800 MG TABLET PO SCH ×4 (02:59→22:05)
[2019-02-25 06:36] LABS: ABSOLUTE EOSINOPHILS # (AUTO) 0.1 10^3/uL (0.0-0.6); ABSOLUTE LYMPHOCYTES (AUTO) 1.7 10^3/uL (0.5-4.7); ABSOLUTE MONOCYTES (AUTO) 0.5 10^3/uL (0.1-1.4); ABSOLUTE NEUT (AUTO) 9.7 10^3/uL (1.7-8.2); BASOPHILS % (AUTO) 0.3 % (0-2); EOSINOPHILS % (AUTO) 1.2 % (0-6); HEMATOCRIT 29.2 % (36.0-47.0); HEMOGLOBIN 9.8 g/dL (12.0-15.5); LYMPHOCYTES % (AUTO) 14.3 % (13-45); MEAN CORPUSCULAR HEMOGLOBIN 29.1 pg (27.0-33.4); MEAN CORPUSCULAR HGB CONC 33.6 g/dL (32.0-36.0); MEAN CORPUSCULAR VOLUME 86 fl (80-97); MONOCYTES % (AUTO) 4.4 % (3-13); PLATELET COUNT 125 10^3/uL (150-450); RED BLOOD COUNT 3.38 10^6/uL (3.72-5.28); RED CELL DISTRIBUTION WIDTH 14.6 % (11.5-14.0); SEGMENTED NEUTROPHILS % (AUTO) 79.8 % (42-78); TOTAL CELLS COUNTED % (AUTO) 100 %; WHITE BLOOD COUNT 12.1 10^3/uL (4.0-10.5)
[2019-02-25] MEDS: PRENATAL VITAMIN W DHA CAPSULE PO SCH (09:14)
[2019-02-25] MEDS: DOCUSATE SODIUM 100 MG CAPSULE PO SCH ×2 (09:14→17:44)
[2019-02-25] MEDS: VALACYCLOVIR HCL 500 MG TABLET PO SCH ×2 (09:14→22:05)
[2019-02-25] MEDS: OXYCODONE-ACETAMINOPHEN 5-325 MG TABLET PO PRN ×2 (09:16→15:04)
--- NOTE | 2019-02-25 10:13 | PDOC PROGRESS REPORT ---
Subjective-OB Progress Note for:: 02/25/19 Subjective: Doing better, passing gas, eating well, voiding, pain under control, baby not going home today Physical Exam (OB) Vital Signs: Temp Pulse Resp BP Pulse Ox 98.6 F 69 16 144/83 H 100 02/25/19 07:16 02/25/19 07:16 02/25/19 07:16 02/25/19 07:16 02/25/19 07:16 Intake & Output 02/24/19 02/25/19 02/26/19 06:59 06:59 06:59 Intake Total 300 300 Output Total 650 Balance -350 300 Weight 109.8 kg - PIH/Pre-Eclampsia Headache: Absent Epigastric Pain: No Visual Changes: No - Dressing Removed: No Incision: Open, Dressing Closure Type: Surgical Glue - Lochia Lochia Amount: Scant < 10 ml Lochia Color: Serosa/Brown - Abdomen Description: Soft Hernia Present: No Fundal Description: Firm, Midline Fundal Height: u/u - u/2 Objective-Diagnostic Laboratory: 02/25/19 06:02 02/23/19 10:25 02/24/19 02/25/19 06:42 06:02 WBC 12.1 H RBC 3.38 L Hgb 9.8 L Hct 29.2 L MCV 86 MCH 29.1 MCHC 33.6 RDW 14.6 H Plt Count 125 L Seg Neutrophils % 79.8 H Lymphocytes % 14.3 Monocytes % 4.4 Eosinophils % 1.2 Basophils % 0.3 Absolute Neutrophils 9.7 H Absolute Lymphocytes 1.7 Absolute Monocytes 0.5 Absolute Eosinophils 0.1 Absolute Basophils 0.0 Blood Type B NEGATIVE Assessment and Plan(PN) - Assessment and Plan (1) hemorrhage Qualifiers: hemorrhage type: third-stage Qualified Code(s): O72.0 - Third- stage hemorrhage Is this a current diagnosis for this admission?: Yes (2) HSV-2 infection complicating Qualifiers: Trimester: third trimester Qualified Code(s): O98.513 - Other viral diseases complicating , third trimester; B00.9 - Herpesviral infection, unspecified Is this a current diagnosis for this admission?: Yes (3) S/P primary low transverse Is this a current diagnosis for this admission?: Yes (4) Pre-eclampsia Qualifiers: Trimester: second trimester Qualified Code(s): O14.92 - Unspecified pre- eclampsia, second trimester Is this a current diagnosis for this admission?: Yes - Time Spent with Patient Time with patient: Less than 15 minutes Medications reviewed and adjusted accordingly: Yes - Disposition Anticipated Discharge: Home Within: within 24 hours
[2019-02-26] MEDS: OXYCODONE-ACETAMINOPHEN 5-325 MG TABLET PO PRN (02:41)
[2019-02-26] MEDS: IBUPROFEN 800 MG TABLET PO SCH ×2 (02:42→09:06)
[2019-02-26] MEDS: DOCUSATE SODIUM 100 MG CAPSULE PO SCH (09:06)
[2019-02-26] MEDS: VALACYCLOVIR HCL 500 MG TABLET PO SCH (09:06)
[2019-02-26] MEDS: PRENATAL VITAMIN W DHA CAPSULE PO SCH (09:06)
--- NOTE | 2019-02-26 09:34 | PDOC PROGRESS REPORT ---
Subjective-OB Progress Note for:: 02/26/19 Subjective: Doing well, ready to go home, feels better today, voiding, passing gas Physical Exam (OB) Vital Signs: Temp Pulse Resp BP Pulse Ox 98.0 F 63 18 128/64 H 99 02/26/19 07:56 02/26/19 07:56 02/26/19 07:56 02/26/19 07:56 02/26/19 07:56 Intake & Output 02/25/19 02/26/19 02/27/19 06:59 06:59 06:59 Intake Total 300 Balance 300 - PIH/Pre-Eclampsia DTR's: 1 + Clonus: Negative Headache: Absent Epigastric Pain: No Visual Changes: No - Dressing Removed: Yes Incision: Open, Well Approximated Closure Type: Surgical Glue - Lochia Lochia Amount: Scant < 10 ml Lochia Color: Rubra/Red - Abdomen Description: Soft, Round Hernia Present: No Fundal Description: Firm, Midline Fundal Height: u/u - u/2 Objective-Diagnostic Laboratory: 02/25/19 06:02 02/23/19 10:25 Assessment and Plan(PN) - Assessment and Plan (1) hemorrhage Qualifiers: hemorrhage type: third-stage Qualified Code(s): O72.0 - Third- stage hemorrhage Is this a current diagnosis for this admission?: Yes (2) HSV-2 infection complicating Qualifiers: Trimester: third trimester Qualified Code(s): O98.513 - Other viral diseases complicating , third trimester; B00.9 - Herpesviral infection, unspecified Is this a current diagnosis for this admission?: Yes (3) S/P primary low transverse Is this a current diagnosis for this admission?: Yes (4) Pre-eclampsia Qualifiers: Trimester: second trimester Qualified Code(s): O14.92 - Unspecified pre- eclampsia, second trimester Is this a current diagnosis for this admission?: Yes - Time Spent with Patient Time with patient: Less than 15 minutes Medications reviewed and adjusted accordingly: Yes - Disposition Anticipated Discharge: Home Within: within 24 hours
--- NOTE | 2019-02-26 09:36 | PDOC DISCHARGE SUMMARY ---
Final Diagnosis Discharge Date: 02/26/19 - Final Diagnosis (1) hemorrhage Is this a current diagnosis for this admission?: Yes (2) HSV-2 infection complicating Is this a current diagnosis for this admission?: Yes (3) S/P primary low transverse Is this a current diagnosis for this admission?: Yes (4) Pre-eclampsia Is this a current diagnosis for this admission?: Yes Discharge Data - Discharge Medication Prescriptions: Oxycodone HCl/Acetaminophen [Percocet 5-325 mg Tablet] 1 tab PO Q4HP PRN #20 tablet PRN Reason: Ibuprofen [Motrin 800 mg Tablet] 800 mg PO Q6A #60 tablet Home Medications: No122/Iron/Folic Acid [ Multi Tablet] 1 tab PO DAILY 02/23/19 Ibuprofen [Motrin 800 mg Tablet] 800 mg PO Q6A #60 tablet 02/25/19 Oxycodone HCl/Acetaminophen [Percocet 5-325 mg Tablet] 1 tab PO Q4HP PRN #20 tablet 02/25/19 Gestational Age: 40.1 Reason(s) for Admission: Ceasarean Section-Primary, Group B Strep Positive Admission Note: suspected HSV Procedures: NST, Ultrasound Intrapartum Procedure(s): : Low Cervical, Transverse - Diagnosis Test Laboratory: Temp Pulse Resp BP Pulse Ox 98.0 F 63 18 128/64 H 99 02/26/19 07:56 02/26/19 07:56 02/26/19 07:56 02/26/19 07:56 02/26/19 07:56 02/23/19 02/23/19 02/24/19 09:35 10:25 06:42 RBC 4.13 3.27 L Hgb 12.0 9.6 L D Hct 35.5 L 28.4 L Urine Opiates Screen NEGATIVE 02/25/19 06:02 RBC 3.38 L Hgb 9.8 L Hct 29.2 L Urine Opiates Screen - Discharge information/Instructions Discharge Activity: Activity As Tolerated, No Lifting Over 10 Pounds, No Lifting/Push/Pulling, Pelvic Rest Discharge Diet: As Tolerated, Regular Disposition: HOME, SELF-CARE Follow up with: [facility] in: 6, Days
[2019-02-26 12:35] VITALS: BP 135/93
== END 2019-02-26 12:55 | disposition home or self-care (01) | DRG 787 ==
LOC: LC 09:21 → LR 09:38 → 2S 19:42
PROVIDERS: ADMIT Student in an Organized Health Care Education/Training Program; ATTEND Student in an Organized Health Care Education/Training Program
PROC: 10D00Z1 Extraction of Products of Conception, Low, Open Approach (ICD-10-PCS; principal; 2019-02-23)
PROC: 3E0234Z Introduction of Serum, Toxoid and Vaccine into Muscle, Percutaneous Approach (ICD-10-PCS; 2019-02-24)
DX: O98.513 Other viral diseases complicating pregnancy, third trimester (principal); O72.0 Third-stage hemorrhage; O99.824 Streptococcus B carrier state complicating childbirth; O14.94 Unspecified pre-eclampsia, complicating childbirth; O13.4 Gestational [pregnancy-induced] hypertension without significant proteinuria, complicating childbirth; O69.81X0 Labor and delivery complicated by cord around neck, without compression, not applicable or unspecified; O99.52 Diseases of the respiratory system complicating childbirth; O34.13 Maternal care for benign tumor of corpus uteri, third trimester; B00.9 Herpesviral infection, unspecified; D25.9 Leiomyoma of uterus, unspecified; J45.909 Unspecified asthma, uncomplicated; Z3A.40 40 weeks gestation of pregnancy; Z37.0 Single live birth
CPT/HCPCS: 1961; 36415; 80053; 80307; 81001; 82570; 83615; 84156; 84550; 85025; 85027; 85461; 86592; 86695; 86850; 86900; 86901; 94799; J0131; J0330; J0360; J1170; J1885; J2250; J2270; J2370; J2400; J2405; J2590; J2704; J2790; J3010; J3370; J3490; J7060

== ENCOUNTER 2019-12-06 06:15 | Emergency (ER) | payer SELFPAY ==
[2019-12-06] MEDS ORDERED: LIDOCAINE 1%/EPINEPHRINE INJ 20 ML VIAL ONE (06:35)
[2019-12-06] MEDS ORDERED: NORMAL SALINE 500 ML IV ONE (06:38)
[2019-12-06] MEDS ORDERED: MIDAZOLAM 2 MG/2 ML INJ IV ONE (06:39)
[2019-12-06] MEDS ORDERED: NORMAL SALINE 1000 ML 1,000 ML IV ONE (06:40)
[2019-12-06] MEDS ORDERED: CLINDAMYCIN 600 MG/D5W RTU 600 MG/50 ML RTUPB IV ONE (06:42)
[2019-12-06 06:48] LABS: ABSOLUTE BASOPHILS # (AUTO) 0.1 10^3/uL (0.0-0.2); ABSOLUTE EOSINOPHILS # (AUTO) 0.1 10^3/uL (0.0-0.6); ABSOLUTE LYMPHOCYTES (AUTO) 4.1 10^3/uL (0.5-4.7); ABSOLUTE MONOCYTES (AUTO) 0.8 10^3/uL (0.1-1.4); ABSOLUTE NEUT (AUTO) 12.3 10^3/uL (1.7-8.2); BASOPHILS % (AUTO) 0.4 % (0-2); EOSINOPHILS % (AUTO) 0.8 % (0-6); HEMOGLOBIN 14.7 g/dL (12.0-15.5); LYMPHOCYTES % (AUTO) 23.3 % (13-45); MEAN CORPUSCULAR HEMOGLOBIN 29.8 pg (27.0-33.4); MEAN CORPUSCULAR HGB CONC 34.9 g/dL (32.0-36.0); MEAN CORPUSCULAR VOLUME 86 fl (80-97); MONOCYTES % (AUTO) 4.6 % (3-13); PLATELET COUNT 343 10^3/uL (150-450); RED BLOOD COUNT 4.92 10^6/uL (3.72-5.28); RED CELL DISTRIBUTION WIDTH 13.2 % (11.5-14.0); SEGMENTED NEUTROPHILS % (AUTO) 70.9 % (42-78); TOTAL CELLS COUNTED % (AUTO) 100 %; WHITE BLOOD COUNT 17.4 10^3/uL (4.0-10.5)
[2019-12-06 07:04] LABS: ALBUMIN 4.6 g/dL (3.5-5.0); ALKALINE PHOSPHATASE 72 U/L (38-126); ANION GAP 13 (5-19); ASPARTATE AMINO TRANSFERASE 19 U/L (14-36); BILIRUBIN,TOTAL 0.4 mg/dL (0.2-1.3); BLOOD UREA NITROGEN 15 mg/dL (7-20); CALCIUM 9.7 mg/dL (8.4-10.2); CARBON DIOXIDE 21 mmol/L (22-30); CHLORIDE 106 mmol/L (98-107); GLUCOSE 130 mg/dL (75-110); POTASSIUM 3.9 mmol/L (3.6-5.0); TOTAL PROTEIN 7.7 g/dL (6.3-8.2)
[2019-12-06 07:06] LABS: ALCOHOL < 10 mg/dL (NONE DETECTED)
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
[2019-12-06 10:07] LABS: APPEARANCE,URINE SLIGHTLY-CLOUDY; BILIRUBIN,URINE NEGATIVE (NEGATIVE); COLOR,URINE YELLOW; GLUCOSE, URINE NEGATIVE (NEGATIVE); KETONES,URINE NEGATIVE (NEGATIVE); LEUKOCYTE ESTERASE,URINE NEGATIVE (NEGATIVE); NITRITE,URINE NEGATIVE (NEGATIVE); PROTEIN,URINE 30 mg/dL (NEGATIVE); URINE SPECIFIC GRAVITY 1.023; UROBILINOGEN,URINE NEGATIVE mg/dL (<2.0)
[2019-12-06 10:26] LABS: URINE AMPHETAMINES SCREEN NEGATIVE; URINE BARBITURATES SCREEN NEGATIVE; URINE BENZODIAZEPINES SCREEN NEGATIVE; URINE COCAINE SCREEN NEGATIVE; URINE METHADONE SCREEN NEGATIVE; URINE PHENCYCLIDINE SCREEN NEGATIVE
[2019-12-06 10:28] LABS: URINE MARIJUANA (THC) SCREEN UNCONFIRMED POSITIVE
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
[2019-12-06 11:02] VITALS: BP 120/101
== END 2019-12-06 11:02 | disposition home or self-care (01) ==
LOC: ER 06:15
DX: S41.012A Laceration without foreign body of left shoulder, initial encounter (principal); R11.10 Vomiting, unspecified; R42 Dizziness and giddiness; W26.0XXA Contact with knife, initial encounter
CPT/HCPCS: 12004; 99284; 96365; 36415; 87040; 80307 ×2; 85025; 81025; 80053; 81001; 71045; J3490; J7030

== ENCOUNTER 2020-03-25 10:37 | Emergency (ER) | payer SELFPAY ==
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
[2020-03-25 12:26] LABS: URINE AMPHETAMINES SCREEN NEGATIVE; URINE BARBITURATES SCREEN NEGATIVE; URINE BENZODIAZEPINES SCREEN NEGATIVE; URINE COCAINE SCREEN NEGATIVE; URINE METHADONE SCREEN NEGATIVE; URINE PHENCYCLIDINE SCREEN NEGATIVE
[2020-03-25 12:28] LABS: URINE MARIJUANA (THC) SCREEN UNCONFIRMED POSITIVE
[2020-03-25] MEDS ORDERED: ACETAMINOPHEN 325 MG TABLET PO ONE (13:28)
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
[2020-03-25] MEDS ORDERED: LIDOCAINE 1% INJ-PF (10 MG/ML) 30 ML SDV INJ ONE (13:33)
[2020-03-25] MEDS ORDERED: DIPHENHYDRAMINE HCL 50 MG CAPSULE PO ONE (13:46)
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
[2020-03-25] MEDS ORDERED: CLINDAMYCIN HCL 150 MG CAPSULE PO ONE (14:52)
[2020-03-25 15:47] VITALS: BP 139/90
== END 2020-03-25 15:45 | disposition home or self-care (01) ==
LOC: ER 10:37
PROC: 0CQ0XZZ Repair Upper Lip, External Approach (ICD-10-PCS; principal; 2020-03-25)
DX: S01.511A Laceration without foreign body of lip, initial encounter (principal); R51 Headache; Y09 Assault by unspecified means; Z88.0 Allergy status to penicillin; J45.909 Unspecified asthma, uncomplicated
CPT/HCPCS: 99285; 80307; 70450; 70486; 12011; J3490